=== PATIENT | female | born 1995 | race Caucasian/White ===

== ENCOUNTER 2021-09-09 20:23 | Outpatient (CLI) | payer BC, OTHER ==
[~2021-09-09] VITALS: Ht 162.6 cm; Wt 66.1 kg
[2021-09-09 20:43] VITALS: BP 130/73
[2021-09-09] MEDS ORDERED: PRENTAB9 PO (20:45)
[2021-09-09] MEDS ORDERED: HOME MED LIST COMPLETE! XX SCH (20:50)
[2021-09-09 21:32] VITALS: BP 123/76
[2021-09-09 21:47] LABS: APPEARANCE, URINE CLEAR (CLEAR); BACTERIA, URINE AUTO NEGATIVE (NEGATIVE); BILIRUBIN, URINE AUTO NEGATIVE (NEGATIVE); BLOOD, URINE BLOOD NEGATIVE (NEGATIVE); COLOR, URINE COLORLESS (YELLOW); GLUCOSE, URINE (UA) AUTO NEGATIVE (NEGATIVE); KETONE, URINE AUTO NEGATIVE (NEGATIVE); LEUKOCYTE ESTERASE, URINE AUTO NEGATIVE (NEGATIVE); NITRITE, URINE AUTO NEGATIVE (NEGATIVE); PROTEIN, URINE AUTO NEGATIVE (NEGATIVE); RBC, URINE AUTO 0 /HPF (0-3); SPECIFIC GRAVITY URINE AUTO 1.002 (1.002-1.035); SQUAMOUS EPITHELIAL CELL UR AU 1 /HPF (0-6); UROBILINOGEN, URINE AUTO 0.2 mg/dL (0.0-2.0); WBC, URINE AUTO 0 /HPF (0-3)
[2021-09-09] MEDS ORDERED: ACETAMINOPHEN TAB 650MG DOSE (2X325MG) PO PRN (22:35)
[2021-09-09] MEDS ORDERED: INDOMETHACIN 25 MG CAP PO ONE (22:35)
[2021-09-09] MEDS ORDERED: ACETAMINOPHEN 500 MG TAB PO PRN (22:46)
[2021-09-09 23:12] VITALS: BP 122/85
[2021-09-10 00:59] VITALS: BP 98/50
[2021-09-10 01:13] LABS: GC DNA AMPLIFICATION NEGATIVE (NEGATIVE)
[2021-09-10 03:00] VITALS: BP 91/54
[2021-09-10] MEDS ORDERED: INDOMETHACIN 25 MG CAP PO SCH (04:35)
[2021-09-10 05:01] VITALS: BP 83/50
[2021-09-10 06:15] VITALS: BP 98/57
== END 2021-09-10 07:15 | disposition home or self-care (01) ==
LOC: M LDO 20:23
PROVIDERS: ATTEND Obstetrics & Gynecology
DX: O60.02 Preterm labor without delivery, second trimester (principal); O26.892 Other specified pregnancy related conditions, second trimester; R25.2 Cramp and spasm; Z3A.24 24 weeks gestation of pregnancy

== ENCOUNTER 2021-09-22 22:55 | Outpatient (CLI) | payer OTHER ==
[~2021-09-22] VITALS: Ht 162.6 cm; Wt 67.0 kg
[~2021-09-22 22:55] MED LIST: PRENTAB9 PO
[2021-09-22 23:25] VITALS: BP 110/74
[2021-09-23] MEDS ORDERED: LR 1,000 ML IV ONE (00:10)
[2021-09-23 00:34] VITALS: BP 108/70
[2021-09-23 00:52] LABS: HEMATOCRIT 30.9 % (36.0-47.0); HEMOGLOBIN 10.5 g/dl (12.0-15.5); MEAN CORPUSCULAR HEMOGLOBIN 29.2 pg (27.0-33.0); MEAN CORPUSCULAR VOLUME 85.8 fl (80.0-96.0); PLATELET COUNT, AUTOMATED 305 10^3/uL (150-450); WHITE BLOOD COUNT 11.3 10^3/uL (4.0-10.0)
[2021-09-23 00:58] LABS: APPEARANCE, URINE CLEAR (CLEAR); BACTERIA, URINE AUTO NEGATIVE (NEGATIVE); BILIRUBIN, URINE AUTO NEGATIVE (NEGATIVE); BLOOD, URINE BLOOD NEGATIVE (NEGATIVE); COLOR, URINE STRAW (YELLOW); GLUCOSE, URINE (UA) AUTO NEGATIVE (NEGATIVE); KETONE, URINE AUTO NEGATIVE (NEGATIVE); LEUKOCYTE ESTERASE, URINE AUTO NEGATIVE (NEGATIVE); NITRITE, URINE AUTO NEGATIVE (NEGATIVE); PROTEIN, URINE AUTO NEGATIVE (NEGATIVE); RBC, URINE AUTO 0 /HPF (0-3); SPECIFIC GRAVITY URINE AUTO 1.004 (1.002-1.035); SQUAMOUS EPITHELIAL CELL UR AU 0 /HPF (0-6); UROBILINOGEN, URINE AUTO 0.2 mg/dL (0.0-2.0); WBC, URINE AUTO 0 /HPF (0-3)
[2021-09-23] MEDS ORDERED: INDOMETHACIN 25 MG CAP PO ONE (02:00)
[2021-09-23 02:36] LABS: GC DNA AMPLIFICATION NEGATIVE (NEGATIVE)
[2021-09-23 02:41] VITALS: BP 81/46
[2021-09-23 02:57] VITALS: BP 77/43
[2021-09-23 03:04] VITALS: BP 81/51
[2021-09-23 05:10] VITALS: BP 100/54
== END 2021-09-23 05:48 | disposition home or self-care (01) ==
LOC: M LDO 22:55
PROVIDERS: ATTEND Obstetrics & Gynecology
DX: O60.02 Preterm labor without delivery, second trimester (principal); O26.892 Other specified pregnancy related conditions, second trimester; R10.2 Pelvic and perineal pain; Z3A.26 26 weeks gestation of pregnancy

== ENCOUNTER 2021-10-26 15:56 | Outpatient (CLI) | payer OTHER ==
[~2021-10-26] VITALS: Ht 162.6 cm; Wt 68.0 kg
== END 2021-10-26 16:55 | disposition home or self-care (01) ==
LOC: M LDO 15:56
PROVIDERS: ATTEND Specialist
DX: O26.893 Other specified pregnancy related conditions, third trimester (principal); R10.11 Right upper quadrant pain; Z3A.28 28 weeks gestation of pregnancy

== ENCOUNTER 2021-11-21 21:37 | Outpatient (CLI) | payer OTHER ==
[~2021-11-21] VITALS: Ht 162.6 cm; Wt 71.5 kg
[2021-11-21 21:45] VITALS: BP 116/79
[2021-11-21] MEDS ORDERED: BETAMETHASONE SOLUSPAN 6MG/ML 5ML VIAL (J0702 PER 3MG) IM SCH (22:20)
[2021-11-21] MEDS ORDERED: LACTATED RINGER'S 1000 ML IV ONE (22:20)
[2021-11-21] MEDS ORDERED: NIFEdipine 10 MG CAP PO ONE (22:25)
[2021-11-21 22:57] VITALS: BP 116/79
[2021-11-21 23:03] VITALS: BP 102/71
[2021-11-21] MEDS ORDERED: CALCIUM CARBONATE 500 MG CHEW U/D PO PRN (23:20)
[2021-11-21] MEDS ORDERED: ACETAMINOPHEN 500 MG TAB PO PRN (23:20)
[2021-11-21 23:25] LABS: HEMATOCRIT 29.3 % (36.0-47.0); HEMOGLOBIN 9.7 g/dl (12.0-15.5); MEAN CORPUSCULAR HEMOGLOBIN 26.5 pg (27.0-33.0); MEAN CORPUSCULAR HGB CONC 33.1 g/dl (32.0-36.5); MEAN CORPUSCULAR VOLUME 80.1 fl (80.0-96.0); PLATELET COUNT, AUTOMATED 267 10^3/uL (150-450); RED BLOOD COUNT 3.66 10^6/uL (4.00-5.40); WHITE BLOOD COUNT 13.7 10^3/uL (4.0-10.0)
[2021-11-22 00:39] VITALS: BP 98/56
[2021-11-22 00:46] LABS: HEPATITIS B SURFACE ANTIGEN NEGATIVE (NEGATIVE); HEPATITIS C VIRUS ABY INDEX 0.1 INDEX (<0.8); HIV 1&2 SCREEN CENTAUR NEGATIVE (NEGATIVE)
[2021-11-22 01:56] VITALS: BP 100/59
[2021-11-22 03:45] VITALS: BP 100/57
[2021-11-22 04:36] VITALS: BP 94/52
[2021-11-22 05:59] VITALS: BP 95/59
== END 2021-11-22 06:51 | disposition home or self-care (01) ==
LOC: M LDO 21:37
PROVIDERS: ATTEND Advanced Practice Midwife
DX: O60.03 Preterm labor without delivery, third trimester (principal); Z3A.34 34 weeks gestation of pregnancy
CPT/HCPCS: 59025; 85027; 86762; 86780; 86803; 86850; 86870; 86900; 86901; 87081; 87340; 87389; 96372; J0702

== ENCOUNTER 2021-11-22 22:23 | Outpatient (CLI) | payer OTHER ==
[~2021-11-22] VITALS: Ht 162.6 cm; Wt 71.5 kg
[2021-11-22] MEDS ORDERED: BETAMETHASONE SOLUSPAN 6MG/ML 5ML VIAL (J0702 PER 3MG) IM ONE (22:30)
[2021-11-22 22:42] VITALS: BP 106/77
== END 2021-11-22 22:56 | disposition home or self-care (01) ==
LOC: M LDO 22:23
PROVIDERS: ATTEND Obstetrics & Gynecology
DX: O60.03 Preterm labor without delivery, third trimester (principal); Z3A.34 34 weeks gestation of pregnancy
CPT/HCPCS: 59025; 96372; J0702

== ENCOUNTER 2022-08-24 12:41 | Emergency (ER) | payer OTHER ==
[~2022-08-24] VITALS: Ht 162.6 cm; Wt 63.6 kg
[~2022-08-24 12:41] MED LIST changes: +ACET-683 PO
[2022-08-24 14:51] LABS: BASO % 0.4 % (0.0-1.0); EOS # 0.3 10^3/uL (0.0-0.5); EOS % 3.6 % (0.0-3.0); HEMATOCRIT 40.9 % (36.0-47.0); HEMOGLOBIN 13.4 g/dl (12.0-15.5); LYMPH % 25.2 % (24.0-44.0); MEAN CORPUSCULAR HEMOGLOBIN 26.3 pg (27.0-33.0); MEAN CORPUSCULAR HGB CONC 32.8 g/dl (32.0-36.5); MEAN CORPUSCULAR VOLUME 80.4 fl (80.0-96.0); MONO # 0.5 10^3/uL (0.0-0.8); MONO % 6.6 % (2.0-8.0); NEUTROPHILS % 64.1 % (36.0-66.0); PLATELET COUNT, AUTOMATED 291 10^3/uL (150-450); RED BLOOD COUNT 5.09 10^6/uL (4.00-5.40); WHITE BLOOD COUNT 7.7 10^3/uL (4.0-10.0)
[2022-08-24 15:14] LABS: LIPASE 35 U/L (12-53)
[2022-08-24 15:16] LABS: ALBUMIN 4.5 G/DL (3.2-5.2); ALKALINE PHOSPHATASE 101 U/L (46-116); ALT/SGPT 16 U/L (7.0-40); AST/SGOT 19 U/L (<34); BILIRUBIN,DIRECT < 0.1 MG/DL (<0.4); BILIRUBIN,TOTAL 0.3 MG/DL (0.3-1.2); CK-MB VALUE MASS < 1.0 NG/ML (<3.6); CPK CREATINE PHOSPHOKINASE 136 U/L (34-145); MB/CK RELATIVE INDEX 0.73 (< OR =4); TOTAL PROTEIN 7.9 G/DL (5.7-8.2)
[2022-08-24 16:03] VITALS: BP 121/79
[2022-08-24 16:48] LABS: CK-MB VALUE MASS < 1.0 NG/ML (<3.6)
[2022-08-24 16:50] LABS: CPK CREATINE PHOSPHOKINASE 122 U/L (34-145); MB/CK RELATIVE INDEX 0.81 (< OR =4)
== END 2022-08-24 17:03 | disposition home or self-care (01) ==
LOC: M ED 12:41
DX: R07.89 Other chest pain (principal); R20.2 Paresthesia of skin; I95.9 Hypotension, unspecified; I47.1 Supraventricular tachycardia